=== PATIENT | female | born 1995 | race Two or more races ===

== ENCOUNTER → 2021-09-14 | Outpatient (CLI) | payer MEDICAID ==
[2021-09-14 10:37] LABS: Hematocrit 32.7 % (36.0-46.0); Hemoglobin 10.9 g/dL (12.2-16.2); Mean Corpuscular Hemoglobin 28.5 pg (28.0-32.0); Mean Corpuscular Hgb Conc. 33.2 g/dL (32.0-36.0); Mean Corpuscular Volume 85.8 fL (80.0-100.0); Red Blood Cells 3.81 10^6/uL (4.0-5.20); Red Cell Distribution Width 13.2 % (11.8-14.3); White Blood Cell 8.9 10^3/uL (4.4-10.8)
[2021-09-14 11:05] LABS: Basophils % (manual) 0 (0.0-2.0); Blast Cells 0; Eosinophils % (manual) 0 (0-7); Myelocytes % 0; Promyelocytes % 0; Reactive Lymphocytes 0
[2021-09-14 11:28] LABS: Alcohol, Urine < 3.0 mg/dL (0-10); Amphetamine Screen, Urine NEGATIVE (NEGATIVE); Barbiturate Scree,Urine NEGATIVE (NEGATIVE); Benzodiazephine Screen, Urine NEGATIVE (NEGATIVE); Cannabinoid Screen, Urine POSITIVE (NEGATIVE); Cocaine Screen, Urine NEGATIVE (NEGATIVE); Opiate Scree,Urine NEGATIVE (NEGATIVE); Phencyclidine Screen, Urine NEGATIVE (NEGATIVE)
[2021-09-14 13:47] LABS: Band Neutrophils % (manual) 5; Lymphocytes % (manual) 16 (10.0-50.0); Metamyelocytes % 3; Monocytes % (manual) 8 (0-12)
[2021-09-15 07:06] LABS: RPR Non Reactive (Non Reactive)
== END | disposition home or self-care (01) ==
LOC: LAB 09:34
PROVIDERS: ATTEND Obstetrics & Gynecology
DX: Z34.00 Encounter for supervision of normal first pregnancy, unspecified trimester (principal)
CPT/HCPCS: 36415; 80307; 84112; 85007; 85027; 86592

== ENCOUNTER 2021-09-22 10:36 | Observation (INO) | payer MEDICAID ==
[~2021-09-22] VITALS: Ht 165.1 cm; Wt 82.1 kg
[2021-09-22] MEDS ORDERED: IRON150T2 PO (11:28)
[2021-09-22] MEDS ORDERED: PREN1TAB71 OR (11:28)
== END 2021-09-22 13:10 | disposition home or self-care (01) ==
LOC: UNDOADMOB 10:36 → LDRP 10:36 → UNDODISOB 13:10
PROVIDERS: ADMIT Obstetrics & Gynecology; ATTEND Obstetrics & Gynecology
DX: N13.30 Unspecified hydronephrosis (principal); O99.891 Other specified diseases and conditions complicating pregnancy; Z3A.36 36 weeks gestation of pregnancy; W19.XXXA Unspecified fall, initial encounter; Y92.89 Other specified places as the place of occurrence of the external cause; Y93.89 Activity, other specified; Y99.8 Other external cause status
CPT/HCPCS: 59025; 76818; 81002; 94760; G0378

== ENCOUNTER 2021-09-25 11:07 | Observation (INO) | payer MEDICAID ==
[~2021-09-25 11:07] MED LIST: IRON150T2 PO; PREN1TAB71 OR
[2021-09-25] MEDS ORDERED: FERR-20 PO (12:03)
== END 2021-09-25 15:11 | disposition home or self-care (01) ==
LOC: LDRP 11:07
PROVIDERS: ADMIT Obstetrics & Gynecology; ATTEND Obstetrics & Gynecology
DX: O99.891 Other specified diseases and conditions complicating pregnancy (principal); N13.30 Unspecified hydronephrosis; Z3A.36 36 weeks gestation of pregnancy
CPT/HCPCS: 59025; 76818; 81002; 94760; G0378

== ENCOUNTER 2021-10-06 11:07 | Observation (INO) | payer MEDICAID ==
[~2021-10-06] VITALS: Ht 165.1 cm; Wt 84.8 kg
[~2021-10-06 11:07] MED LIST changes: +FERR-20 PO; -IRON150T2 PO
== END 2021-10-06 12:50 | disposition home or self-care (01) ==
LOC: UNDOADMOB 11:07 → LDRP 11:07 → UNDODISOB 12:50
PROVIDERS: ADMIT Obstetrics & Gynecology; ATTEND Obstetrics & Gynecology
DX: O99.891 Other specified diseases and conditions complicating pregnancy (principal); N13.30 Unspecified hydronephrosis; Z3A.38 38 weeks gestation of pregnancy; Z87.891 Personal history of nicotine dependence
CPT/HCPCS: 59025; 76818; 81002; 94760; G0378

== ENCOUNTER 2021-10-13 07:18 | Observation (INO) | payer MEDICAID ==
[~2021-10-13 07:18] MED LIST changes: -FERR-20 PO
== END 2021-10-13 14:25 | disposition home or self-care (01) ==
LOC: LDRP 13:01 → UNDOADMOB 13:01 → LDRP 13:10
PROVIDERS: ADMIT Obstetrics & Gynecology; ATTEND Obstetrics & Gynecology
DX: O40.3XX0 Polyhydramnios, third trimester, not applicable or unspecified (principal); O99.891 Other specified diseases and conditions complicating pregnancy; N13.30 Unspecified hydronephrosis; O62.9 Abnormality of forces of labor, unspecified; Z3A.39 39 weeks gestation of pregnancy
CPT/HCPCS: 59025; 76818; 81002; 94760; G0378

== ENCOUNTER 2021-10-17 10:25 | Observation (INO) | payer MEDICAID ==
[~2021-10-17] VITALS: Ht 165.1 cm; Wt 65.8 kg
== END 2021-10-17 12:31 | disposition home or self-care (01) ==
LOC: LDRP 10:25
PROVIDERS: ADMIT Obstetrics & Gynecology; ATTEND Obstetrics & Gynecology
DX: O48.0 Post-term pregnancy (principal); O99.891 Other specified diseases and conditions complicating pregnancy; N13.30 Unspecified hydronephrosis; Z3A.40 40 weeks gestation of pregnancy; Z87.891 Personal history of nicotine dependence
CPT/HCPCS: 59025; 76818; 81002; G0378

== ENCOUNTER 2021-10-20 11:23 | Observation (INO) | payer MEDICAID | END 2021-10-20 13:43 | disposition home or self-care (01) | LOC: LDRP 11:23 → UNDOADMOB 11:23 → LDRP 12:01 | PROVIDERS: ADMIT Obstetrics & Gynecology; ATTEND Obstetrics & Gynecology | DX: O48.0 Post-term pregnancy (principal); Z3A.40 40 weeks gestation of pregnancy; Z87.891 Personal history of nicotine dependence | CPT/HCPCS: 76818; G0378; 59025; 81002; 94760 ==

== ENCOUNTER 2021-10-22 04:06 | Inpatient (IN) | payer MEDICAID ==
[2021-10-21 12:18] LABS: Urine Bacteria FEW /hpf (None Seen); Urine Blood Negative /uL (Negative); Urine Hyaline Cast FEW /lpf (0 - 2); Urine Mucus FEW (None Seen); Urine Specific Gravity 1.016 (1.001-1.035); Urine WBC 37 /hpf (0 - 5)
[2021-10-21 12:18] LABS: Basophils # (auto) 0 10 ^3/uL (0-0.2); Basophils % (auto) 0.3 % (0.0-2.0); Eosinophils # (auto) 0.1 10 ^3/uL (0-0.8); Eosinophils % (auto) 0.8 % (0.0-7.0); Hematocrit 35.1 % (36.0-46.0); Hemoglobin 11.1 g/dL (12.2-16.2); Lymphocytes # (auto) 1.6 10 ^3/uL (0.4-5.4); Lymphocytes % (auto) 16.4 % (10.0-50.0); Mean Corpuscular Hgb Conc. 31.6 g/dL (32.0-36.0); Mean Corpuscular Volume 82.3 fL (80.0-100.0); Monocytes % (auto) 10.1 % (0.0-12.0); Neutrophils % (auto) 72.4 % (37.0-80.0); Red Blood Cells 4.26 10^6/uL (4.0-5.20); Red Cell Distribution Width 14.6 % (11.8-14.3); White Blood Cell 9.7 10^3/uL (4.4-10.8)
[2021-10-21 12:32] LABS: INR 0.87 (0.9-1.15); Partial Thromboplastin Time 22.7 sec (24.6-33.4)
[2021-10-21 12:34] LABS: Albumin 2.8 g/dL (3.4-5.0); Calcium 8.9 mg/dL (8.5-10.1)
[2021-10-21 12:36] LABS: Alcohol, Urine < 3.0 mg/dL (0-10); Amphetamine Screen, Urine NEGATIVE (NEGATIVE); Barbiturate Scree,Urine NEGATIVE (NEGATIVE); Benzodiazephine Screen, Urine NEGATIVE (NEGATIVE); Cannabinoid Screen, Urine NEGATIVE (NEGATIVE); Cocaine Screen, Urine NEGATIVE (NEGATIVE); Opiate Scree,Urine NEGATIVE (NEGATIVE); Phencyclidine Screen, Urine NEGATIVE (NEGATIVE)
[2021-10-21 12:37] LABS: BUN/Creatinine Ratio 12.8; Bilirubin, Total 0.2 mg/dL (0.2-1.0); Total Protein 7.6 g/dL (6.4-8.2)
[2021-10-22] VITALS (16 sets, daily range): BP systolic 100–130; BP diastolic 42–72
[~2021-10-22] VITALS: Ht 165.1 cm; Wt 87.1 kg
[2021-10-22] MEDS ORDERED: LACTATED RINGER'S 1,000 ML IV ONE ×2 (05:00→05:15)
[2021-10-22 05:07] LABS: RPR Non Reactive (Non Reactive)
[2021-10-22] MEDS ORDERED: ceFAZolin 1GM/50ML 50 ML IV ONE (05:15)
[2021-10-22] MEDS ORDERED: TETRACAINE 1% INJ 2 ML VIAL IJ ONE (07:17)
[2021-10-22] MEDS ORDERED: POVIDONE IODINE 10 % TOPICAL OINT 30GM TOP ONE (08:14)
[2021-10-22] MEDS ORDERED: DOCU-94 PO (08:26)
[2021-10-22] MEDS ORDERED: HYDR-4902 PO (08:26)
[2021-10-22] MEDS ORDERED: IBUP800T27 PO (08:26)
[2021-10-22] MEDS ORDERED: NALOXONE HCL 0.4 MG/ML VIAL IV PRN (08:30)
[2021-10-22] MEDS ORDERED: ONDANSETRON HCL 4 MG/2 ML VIAL IV PRN ×2 (08:30)
[2021-10-22] MEDS ORDERED: ePHEDrine SULFATE 50 MG/ML AMP IV PRN ×2 (08:30)
[2021-10-22] MEDS ORDERED: GUM (CHEWING) 1 GUM CHEW CHEW ONE (08:30)
[2021-10-22] MEDS ORDERED: HYDROmorphone HCL 2 MG/ML VL/or syr IV PRN (08:30)
[2021-10-22] MEDS ORDERED: LACT. RINGERS/OXYTOCIN 20UNITS 1,000 ML IV ONE (08:30)
[2021-10-22] MEDS ORDERED: diphenhdrAMINE HCL 50 MG/1 ML VL IV PRN (08:30)
[2021-10-22] MEDS ORDERED: MORPHINE SULFATE 4 MG/ML SYR/VIAL IV PRN (08:30)
[2021-10-22] MEDS ORDERED: NALBUPHINE HCL 10 MG/1ml INJECTION SUBCUT ONE (08:30)
[2021-10-22] MEDS ORDERED: MIDAZOLAM HCL 2MG/2ML 2ml VIAL (1mg/ml) IV PRN (08:30)
[2021-10-22] MEDS ORDERED: KETOROLAC TROMETH 30 MG/ML 1ML VIAL IV PRN (08:30)
[2021-10-22] MEDS ORDERED: DexAMETHasone SOD PHOS 10MG/1ML VIAL INJ IV PRN (08:30)
[2021-10-22] MEDS ORDERED: LABETALOL HCL 5 MG/ML 4ML SYRINGE IV PRN (08:30)
[2021-10-22 09:07] LABS: Basophils # (auto) 0 10 ^3/uL (0-0.2); Mean Corpuscular Hgb Conc. 31.8 g/dL (32.0-36.0); Monocytes # (auto) 0.7 10 ^3/uL (0-1.3); Nucleated Red Blood Cells % 0.1 %; White Blood Cell 8.7 10^3/uL (4.4-10.8)
[2021-10-22 09:08] LABS: Basophils % (auto) 0.4 % (0.0-2.0); Eosinophils # (auto) 0 10 ^3/uL (0-0.8); Eosinophils % (auto) 0.5 % (0.0-7.0); Hematocrit 31.5 % (36.0-46.0); Lymphocytes # (auto) 1.4 10 ^3/uL (0.4-5.4); Lymphocytes % (auto) 15.6 % (10.0-50.0); Mean Corpuscular Hemoglobin 26.6 pg (28.0-32.0); Mean Corpuscular Volume 83.7 fL (80.0-100.0); Monocytes % (auto) 7.7 % (0.0-12.0); Neutrophils # (auto) 6.6 10 ^3/uL (1.6-8.6); Neutrophils % (auto) 75.8 % (37.0-80.0); Red Blood Cells 3.76 10^6/uL (4.0-5.20); Red Cell Distribution Width 14.3 % (11.8-14.3)
[2021-10-22] MEDS: LACTATED RINGER'S 1,000 ML IV SCH ×3 (09:32→21:00)
[2021-10-22] MEDS ORDERED: ACETAMINOPHEN IV 1000 MG/100ML (10MG/ML) IV PRN ×2 (10:00→10:15)
[2021-10-22] MEDS: ceFAZolin 1GM/50ML 50 ML IV SCH (15:41)
[2021-10-23] VITALS (14 sets, daily range): BP systolic 109–123; BP diastolic 58–78
[2021-10-23] MEDS: ceFAZolin 1GM/50ML 50 ML IV SCH ×2 (00:25→07:53)
[2021-10-23] MEDS: LACTATED RINGER'S 1,000 ML IV SCH ×3 (05:00→21:00)
[2021-10-23] MEDS: SIMETHICONE 80 MG CHEWABLE TABLET PO SCH ×5 (05:54→22:00)
[2021-10-23] MEDS ORDERED: HYDROcodone-ACET 5/325MG TAB PO PRN (08:30)
[2021-10-23] MEDS: IBUPROFEN 800 MG TAB PO PRN ×2 (08:34→18:29)
[2021-10-23 09:34] LABS: Basophils # (auto) 0 10 ^3/uL (0-0.2); Basophils % (auto) 0.2 % (0.0-2.0); Eosinophils # (auto) 0 10 ^3/uL (0-0.8); Eosinophils % (auto) 0.1 % (0.0-7.0); Hemoglobin 9.6 g/dL (12.2-16.2); Monocytes # (auto) 0.5 10 ^3/uL (0-1.3); Red Cell Distribution Width 14.8 % (11.8-14.3)
[2021-10-23 09:36] LABS: Hematocrit 29.7 % (36.0-46.0); Lymphocytes # (auto) 0.6 10 ^3/uL (0.4-5.4); Lymphocytes % (auto) 6.9 % (10.0-50.0); Mean Corpuscular Hemoglobin 26.5 pg (28.0-32.0); Mean Corpuscular Hgb Conc. 32.4 g/dL (32.0-36.0); Mean Corpuscular Volume 81.9 fL (80.0-100.0); Monocytes % (auto) 5.6 % (0.0-12.0); Neutrophils # (auto) 7.8 10 ^3/uL (1.6-8.6); Neutrophils % (auto) 87.2 % (37.0-80.0); Red Blood Cells 3.63 10^6/uL (4.0-5.20); White Blood Cell 8.9 10^3/uL (4.4-10.8)
[2021-10-23] MEDS ORDERED: DOCUSATE SOD 100 MG CAP PO SCH (10:00)
[2021-10-23] MEDS ORDERED: ACETAMINOPHEN 325 MG TAB PO PRN (10:45)
[2021-10-23] MEDS: DOCUSATE CALCIUM 240 MG CAP PO SCH (10:50)
[2021-10-23] MEDS: DOCUSATE SOD 100 MG CAP PO SCH (22:00)
[2021-10-24 02:49] VITALS: BP 121/61
[2021-10-24] MEDS: HYDROcodone-ACET 5/325MG TAB PO PRN ×2 (02:54→11:00)
[2021-10-24 07:00] VITALS: BP 110/64
[2021-10-24] MEDS: SIMETHICONE 80 MG CHEWABLE TABLET PO SCH (07:33)
[2021-10-24] MEDS: IBUPROFEN 800 MG TAB PO PRN (07:33)
[2021-10-24] MEDS: DOCUSATE SOD 100 MG CAP PO SCH (10:59)
[2021-10-24] MEDS: DOCUSATE CALCIUM 240 MG CAP PO SCH (10:59)
[2021-10-24 11:00] VITALS: BP 112/60
== END 2021-10-24 13:15 | disposition home or self-care (01) | DRG 540 ==
LOC: LDRP 04:06
PROVIDERS: ADMIT Obstetrics & Gynecology; ATTEND Obstetrics & Gynecology
PROC: 10D00Z1 Extraction of Products of Conception, Low, Open Approach (ICD-10-PCS; principal; 2021-10-22 07:28)
DX: O36.63X0 Maternal care for excessive fetal growth, third trimester, not applicable or unspecified (principal); O34.211 Maternal care for low transverse scar from previous cesarean delivery; Z37.0 Single live birth; Z3A.40 40 weeks gestation of pregnancy; Z20.822 Contact with and (suspected) exposure to COVID-19
CPT/HCPCS: 36415; 59025; 80053; 80307; 81001; 82962; 84112; 85025; 85610; 85730; 86592; 86850; 86900; 86901; 94760; 94762; 96360; 96361; 96365; 96366; 96374; G0378; J0131; J0690; J2590

== ENCOUNTER 2021-10-30 18:15 | Emergency (ER) | payer MEDICAID ==
[~2021-10-30] VITALS: Ht 165.1 cm; Wt 77.2 kg
[~2021-10-30 18:15] MED LIST changes: +DOCU-94 PO; +HYDR-4902 PO; +IBUP800T27 PO
[2021-10-30 18:42] VITALS: BP 151/94
[2021-10-30 19:16] LABS: Urine Bacteria NONE SEEN /hpf (None Seen); Urine Blood Negative /uL (Negative); Urine Mucus FEW (None Seen); Urine Specific Gravity 1.028 (1.001-1.035); Urine WBC 5 /hpf (0 - 5)
== END 2021-10-30 20:31 | disposition home or self-care (01) ==
LOC: ER 18:15
DX: S31.000A Unspecified open wound of lower back and pelvis without penetration into retroperitoneum, initial encounter (principal); Z79.1 Long term (current) use of non-steroidal anti-inflammatories (NSAID); Z79.899 Other long term (current) drug therapy; X58.XXXA Exposure to other specified factors, initial encounter; Y93.89 Activity, other specified; Y92.89 Other specified places as the place of occurrence of the external cause; Y99.8 Other external cause status
CPT/HCPCS: 81001